=== PATIENT | female | born 1995 | race Hispanic/Latino ===

== ENCOUNTER 2022-10-07 17:36 | Emergency (ER) | payer OTHER, SELFPAY ==
--- NOTE | 2022-10-07 17:40 | ED.CHESTPAIN ---
HPI - Chest Pain General Chief Complaint: Unspecified Stated Complaint: Left Breast Pain Time Seen by Provider: 10/07/22 17:39 Source: patient Mode of arrival: ambulatory Limitations: no limitations History of Present Illness HPI narrative: Grace is a 27-year-old female patient presenting to the clinic today with complaints of left-sided breast pain 2-3 days. She reports it has become warm, firm and tender. She reports her pain an 8/10 currently. Related Data Allergies Allergy/AdvReac Type Severity Reaction Status Date / Time No Known Allergies Allergy Verified 10/07/22 17:44 Review of Systems Review of Systems: Pertinent positives per HPI. Patient denies any fever, chills, rash, headache, visual changes, dizziness, cough, runny nose, sore throat, shortness of breath, chest pain, palpitations, nausea, vomiting, diarrhea, constipation, abdominal pain, or any urinary issues. PMFSH Comments At the time of my signature, I reviewed and agree with the nursing past medical, surgical, social, and family history. There is no relevant family history pertinent to the patient complaint. Exam Narrative: General: Well-developed, well nourished, in no apparent distress Head: Normocephalic, atraumatic. Breast: Verna QUIÑONEZ at bedside. Redness and swelling noted to the left anterior center breast just around the areola with 4.5 cm by 4.5 cm induration with redness,erythema, and firmness. No fluctuance palpable. No drainage coming from the nipple. No abnormal skin appearances to the nipple Cardio: Regular rate and rhythm, s1 and s2 normal, no murmur appreciated. Resp: Clear to auscultation bilaterally, no rhonchi, rales, wheezing or rubs. Course Course Emergency Course: Portions of this record may have been created with voice recognition software. Level of Care: Express Care Visit Vital Signs Vital signs: Vital Signs Temperature 36.6 C 10/07/22 17:50 Pulse Rate 90 10/07/22 17:50 Respiratory Rate 16 10/07/22 17:50 Blood Pressure 129/88 10/07/22 17:50 Pulse Oximetry 100 10/07/22 17:50 Oxygen Delivery Room Air 10/07/22 17:50 Temperature 36.6 C 10/07/22 17:50 Pulse Rate 90 12/07/22 17:50 Respiratory Rate 16 10/07/22 17:50 Blood Pressure 129/88 10/07/22 17:50 Pulse Oximetry 100 10/07/22 17:50 Oxygen Delivery Room Air 10/07/22 17:50 Vital signs reviewed MDM - Chest Pain MDM Narrative Medical decision making narrative: At the time of visit patient is resting comfortably on the exam table. I suspect the patient has left breast cellulitis. Rocephin 1 g IM given in the clinic today. Prescriptions for doxycycline and Keflex was sent to the pharmacy for her to start tomorrow. Supportive measures were discussed with the patient she voiced understanding of discharge instructions and agrees to treatment plan. Differential Diagnosis Differential diagnosis: Likely other ( Breast cellulitis, breast abscess) Discharge Plan Discharge Clinical Impression: Cellulitis of left breast Patient Disposition: Home, Self-Care Condition: Stable Instructions: Antibiotic Form, Cellulitis (ED) Additional Instructions: Rocephin 1 g IM administrado en la cl?venkat hoy Comience con doxiciclina y Keflex ma?dima Aplique compresas tibias en el seno beto 20 minutos cada 2 horas. Puede rosey Tylenol/Motrin seg?n sea necesario para el dolor o la fiebre Seguimiento con rooney PCP la pr?xima semana Vaya a la cosmo de emergencias si presenta un empeoramiento de los s?ntomas: aumento del dolor, aumento de la hinchaz?n, fiebre yazan que no se controla con Tylenol o Motrin, letargo, dolor en el pecho o dificultad para respirar Patient Language: Japanese Prescriptions: New doxycycline monohydrate 100 mg capsule 100 mg PO BID 10 Days Qty: 20 0RF cephalexin 500 mg capsule 500 mg PO Q8H 10 Days Qty: 30 0RF Follow-up/Referrals: UNKNOWN,DOCTOR [Non-Staff] - Time of Disposit
[2022-10-07 17:50] VITALS: BP 129/88; PULSE 90; RESP 16; TEMP 36.6; O2SAT 100
[2022-10-07] MEDS: cefTRIAXone 1 GM, LIDOCAINE HCL 1% LOCAL INJ 2.1 ML IM (18:15)
== END 2022-10-07 18:30 | disposition home or self-care (01) ==
LOC: EXPCOLL 17:44
PROVIDERS: Emergency Provider Nurse Practitioner Family
DX: N61.0 Mastitis without abscess (principal)
CPT/HCPCS: 96372; 99203; G0463; J0696

== ENCOUNTER 2023-02-16 13:25 | Outpatient (CLI) | payer OTHER, SELFPAY ==
--- NOTE | ~2023-02-16 | US_ITS ---
EXAMINATION: US breast LT limited HISTORY: Palpable lump at the 9:00 location near the nipple of the left breast TECHNIQUE: Limited left breast ultrasound is performed. FINDINGS: There is a 10 mm x 12 mm x 3 mm hypoechoic area in the skin of the left breast at the 9:00 location near the nipple. No suspicious cystic or solid mass is identified. IMPRESSION: Probable sebaceous cyst or small fluid collection of the skin at the 9:00 location of the left breast corresponding to the palpable abnormality in question. Further evaluation at this time should be bas ed on clinical assessment. Continued follow-up physical examination is recommended. BI-RADS Category 2: Benign finding(s). Reviewed, dictated and finalized at location A. IMPRESSION: Probable sebaceous cyst or small fluid collection of the skin at the 9:00 locat ion of the left breast corresponding to the palpable abnormality in question. F urther evaluation at this time should be based on clinical assessment. Continue d follow-up physical examination is recommended. BI-RADS Category 2: Benign finding(s).
== END 2023-02-16 13:26 | disposition home or self-care (01) ==
PROVIDERS: Visit Provider Registered Nurse
DX: N60.02 Solitary cyst of left breast (principal)
CPT/HCPCS: 76642

== ENCOUNTER 2023-03-24 09:22 | Outpatient (CLI) | payer OTHER, SELFPAY ==
--- NOTE | ~2023-03-24 | US_ITS ---
EXAMINATION: US soft tissue UE LT DATE: 03/24/2023 10:16 INDICATION: Surveillance of subcutaneous contraceptive implant TECHNIQUE: Multiple grayscale and Doppler ultrasound images of the medial left upper arm were obtaine d. COMPARISON: None FINDINGS: 3.5 cm long thin smooth linear echogenic and shadowing structure consistent with a contraceptive impl ant is identified in the subcutaneous fat at the medial left upper arm. This located approximately 2. 5-3.5 mm deep to the skin surface, equidistant to the underlying superficial muscular fascia. IMPRESSION: 1. 3.5 cm long linear foreign body consistent with a contraceptive implant in the subcutaneous fat at the medial left upper arm. Reviewed, dictated and finalized at location A. IMPRESSION: 1. 3.5 cm long linear foreign body consistent with a contraceptive implant in t he subcutaneous fat at the medial left upper arm.
== END 2023-03-24 09:23 | disposition home or self-care (01) ==
PROVIDERS: Visit Provider Registered Nurse
DX: Z30.46 Encounter for surveillance of implantable subdermal contraceptive (principal)
CPT/HCPCS: 76882